=== PATIENT | male | born 1965 | race Caucasian/White ===

== ENCOUNTER 2019-08-04 06:55 | Emergency (ER) | payer MEDICARE, OTHER ==
[~2019-08-04] VITALS: Ht 162.6 cm; Wt 82.0 kg
[2019-08-04 07:04] VITALS: BP 140/90
[2019-08-04] MEDS ORDERED: ACETAMINOPHEN 325MG TABLET PO ONE (08:15)
== END 2019-08-04 09:49 | disposition home or self-care (01) ==
LOC: ER 06:55
DX: S00.03XA Contusion of scalp, initial encounter (principal); S50.12XA Contusion of left forearm, initial encounter; T14.8XXA Other injury of unspecified body region, initial encounter; F20.9 Schizophrenia, unspecified; X99.8XXA Assault by other sharp object, initial encounter; Y93.89 Activity, other specified; Y92.89 Other specified places as the place of occurrence of the external cause
CPT/HCPCS: 73090; 99283